=== PATIENT | male | born 1975 | race Caucasian/White ===

== ENCOUNTER 2021-03-27 00:37 | Emergency (ER) | payer OTHER ==
[~2021-03-27] VITALS: Ht 182.9 cm; Wt 106.6 kg
[~2021-03-27 00:37] MED LIST: CYCL10 PO; Norco 5-325 Ta1 EACH PO; PANT40 PO; RXTRAM50 PO; TRAM50 PO
== END 2021-03-27 01:58 | disposition home or self-care (01) ==
LOC: ER 00:37
DX: Z63.4 Disappearance and death of family member (principal); F17.220 Nicotine dependence, chewing tobacco, uncomplicated; Z88.1 Allergy status to other antibiotic agents
CPT/HCPCS: 99283